=== PATIENT | female | born 1990 | race Caucasian/White ===

== ENCOUNTER 2020-09-10 13:24 | Emergency (ER) | payer BC ==
[~2020-09-10 13:24] MED LIST: Iopamidol-370 76% 500 ML 1 ML ONE
[2020-09-10 14:21] LABS: #Eosinphils 0.2 thou/uL (0.0-0.7); #Lymphocytes 2.3 thou/uL (1.20-3.40); #Monocytes 0.4 thou/uL (0.11-0.59); #Neutrophils 5.1 thou/uL (1.40-6.50); %Basophils 0.2 % (0.0-1.0); %Eosinophils 2.7 % (0.0-10.0); %Lymphocytes 28.2 % (21.0-51.0); %Monocytes 4.6 % (0.0-10.0); %Neutrophils 64.2 % (42.0-75.0); Hemoglobin 12.8 g/dL (12.0-16.0); Mean Corpuscular HGB CONC 32.5 g/dL (32.0-36.0); Mean Corpuscular Hemoglobin 28.5 pg (27.0-31.0); Mean Corpuscular Volume 87.9 fL (78.0-98.0); Mean Platelet Volume 7.1 fL (7.4-10.4); Platelet Count 423 thou/uL (130-400); RBC Distribution Width 13.1 % (11.5-14.5); Red Blood Cell (RBC) Count 4.48 mill/uL (4.20-5.40)
[2020-09-10] MEDS ORDERED: Ondansetron PF 4 MG/2 ML Vial ONE (14:28)
[2020-09-10] MEDS ORDERED: Ketorolac Tromethamine 30 MG/ML VIAL ONE (14:28)
[2020-09-10 14:43] LABS: ALT (SGPT) 18 U/L (8-55); AST (SGOT) 16 U/L (5-34); Albumin 4.2 g/dL (3.5-5.0); Alkaline Phosphatase 104 U/L (40-110); Anion Gap 14 mmol/L (10-20); BUN (Urea Nitrogen) 9 mg/dL (7.0-18.7); Bilirubin, Total 0.3 mg/dL (0.2-1.2); Calc. Creatinine Clearance 0 mL/min (70-130); Calcium 9.2 mg/dL (7.8-10.44); Carbon Dioxide 23 mmol/L (22-29); Chloride 104 mmol/L (98-107); Globulin 3.7 g/dL (2.4-3.5); Glucose 86 mg/dL (70-105); Lipase 26 U/L (8-78); Protein, Total 7.9 g/dL (6.0-8.3); Sodium 137 mmol/L (136-145)
[2020-09-10 16:11] LABS: Bacteria/HPF None Seen HPF (None Seen); Bilirubin Negative (Negative); Blood, Urine Negative (Negative); Clarity Clear (Clear); Glucose, Urine (Dipstick) Normal (Negative); Ketone, Urine Negative (Negative); Leukocyte 500 Leu/uL (Negative); Nitrite Negative (Negative); Protein, Urine (Dipstick) Negative (Neg-Trace); Squamous Epithelial 0-3 HPF (0-3); Urobilinogen Normal mg/dL (Less than 2)
[2020-09-10 16:12] LABS: Specific Gravity, Urine 1.048 (1.002-1.036)
[2020-09-10] MEDS ORDERED: Acetaminophen 500 MG TAB ONE ×2 (16:33)
[2020-09-10] MEDS ORDERED: methylPREDNISolone Sod Succ 40 MG VIAL ONE (18:29)
== END 2020-09-10 18:45 | disposition home or self-care (01) ==
LOC: ERS 13:24
DX: K50.90 Crohn's disease, unspecified, without complications (principal)
CPT/HCPCS: 36415; 74177; 80053; 81003; 81015; 83605; 83690; 84484; 85025; 96374; 96375; J1885; J2405; J2920; Q9967

== ENCOUNTER 2020-09-15 09:15 | Outpatient (CLI) | payer BC | END 2020-09-15 09:16 | disposition home or self-care (01) | LOC: MRI 09:15 | PROVIDERS: ATTEND Internal Medicine Gastroenterology | DX: K50.00 Crohn's disease of small intestine without complications (principal); K63.3 Ulcer of intestine; K52.9 Noninfective gastroenteritis and colitis, unspecified | CPT/HCPCS: 74183; J1610 ==

== ENCOUNTER 2020-09-16 14:27 | Inpatient (IN) | payer BC ==
[2020-09-16] MEDS ORDERED: Promethazine HCl 25 MG/ML VIAL ONE (15:55)
[2020-09-16] MEDS ORDERED: Ondansetron ODT 4 MG TAB ONE (16:02)
[2020-09-16] MEDS ORDERED: Ketorolac Tromethamine 30 MG/ML VIAL ONE (16:02)
[2020-09-16 16:22] LABS: #Lymphocytes 1.2 thou/uL (1.20-3.40); #Monocytes 0.3 thou/uL (0.11-0.59); #Neutrophils 8.4 thou/uL (1.40-6.50); %Basophils 0.2 % (0.0-1.0); %Eosinophils 0.4 % (0.0-10.0); %Lymphocytes 12.1 % (21.0-51.0); %Monocytes 3.2 % (0.0-10.0); %Neutrophils 84.2 % (42.0-75.0); Hemoglobin 12.9 g/dL (12.0-16.0); Mean Corpuscular HGB CONC 32.4 g/dL (32.0-36.0); Mean Corpuscular Hemoglobin 28.4 pg (27.0-31.0); Mean Corpuscular Volume 87.8 fL (78.0-98.0); Mean Platelet Volume 6.9 fL (7.4-10.4); Platelet Count 416 thou/uL (130-400); RBC Distribution Width 12.8 % (11.5-14.5); Red Blood Cell (RBC) Count 4.55 mill/uL (4.20-5.40)
[2020-09-16 16:42] LABS: ALT (SGPT) 21 U/L (8-55); AST (SGOT) 21 U/L (5-34); Albumin 4.1 g/dL (3.5-5.0); Alkaline Phosphatase 105 U/L (40-110); Anion Gap 15 mmol/L (10-20); BUN (Urea Nitrogen) 9 mg/dL (7.0-18.7); Bilirubin, Total 0.3 mg/dL (0.2-1.2); Calc. Creatinine Clearance 0 mL/min (70-130); Calcium 9.6 mg/dL (7.8-10.44); Carbon Dioxide 23 mmol/L (22-29); Chloride 103 mmol/L (98-107); Globulin 3.7 g/dL (2.4-3.5); Glucose 104 mg/dL (70-105); Lipase 14 U/L (8-78); Magnesium 2.1 mg/dL (1.6-2.6); Protein, Total 7.8 g/dL (6.0-8.3); Sodium 136 mmol/L (136-145)
[2020-09-16 16:43] LABS: BHCG - Serum Negative (NEGATIVE); Pregs Control Background? CLEAR/WHITE (CLR/WHITE); Pregs Control Bar Appear? YES (CONTROL BAR)
[2020-09-16] MEDS ORDERED: Dextrose 5 %-0.45 % NaCl 1,000 ML IV SCH (18:15)
[2020-09-16 21:37] LABS: Bacteria/HPF None Seen HPF (None Seen); Bilirubin Negative (Negative); Blood, Urine 2+ (Negative); Clarity Clear (Clear); Glucose, Urine (Dipstick) Normal (Negative); Ketone, Urine Negative (Negative); Leukocyte Negative Leu/uL (Negative); Nitrite Negative (Negative); Protein, Urine (Dipstick) Negative (Neg-Trace); Specific Gravity, Urine 1.028 (1.002-1.036); Urobilinogen Normal mg/dL (Less than 2); pH, Urine 5.5 (5.0-9.0)
[2020-09-16] MEDS: Fentanyl 100 MCG/2 ML VIAL SLOW IVP PRN (23:00)
[2020-09-16] MEDS ORDERED: Fentanyl 100 MCG/2 ML VIAL SLOW IVP PRN (23:34)
[2020-09-17 00:21] LABS: Anion Gap 13 mmol/L (10-20); BUN (Urea Nitrogen) 9 mg/dL (7.0-18.7); Calc. Creatinine Clearance 153 mL/min (70-130); Calcium 8.3 mg/dL (7.8-10.44); Carbon Dioxide 23 mmol/L (22-29); Chloride 106 mmol/L (98-107); Glucose 103 mg/dL (70-105); Potassium 4.1 mmol/L (3.5-5.1); Sodium 138 mmol/L (136-145)
[2020-09-17] MEDS: Promethazine HCl 25 MG in Sodium Chloride 0.9% 50 ML IVPB PRN ×2 (00:34→21:28)
[2020-09-17] MEDS: D5 1/2 NS w/10 mEq KCl 1,000 ML/1,000 ML BAG IV SCH ×3 (01:15→22:46)
[2020-09-17 02:17] LABS: SARS-CoV-2 PCR by NAA Not Detected (NotDetected)
[2020-09-17 06:14] LABS: #Eosinphils 0.2 thou/uL (0.0-0.7); #Lymphocytes 1.7 thou/uL (1.20-3.40); #Monocytes 0.4 thou/uL (0.11-0.59); %Basophils 0.6 % (0.0-1.0); %Eosinophils 2.9 % (0.0-10.0); %Monocytes 7.5 % (0.0-10.0); %Neutrophils 56.9 % (42.0-75.0); Mean Corpuscular HGB CONC 33.8 g/dL (32.0-36.0); Mean Corpuscular Volume 88.6 fL (78.0-98.0); Mean Platelet Volume 7.1 fL (7.4-10.4); Platelet Count 344 thou/uL (130-400); RBC Distribution Width 12.9 % (11.5-14.5); Red Blood Cell (RBC) Count 3.67 mill/uL (4.20-5.40); White Blood Cell (WBC) Count 5.3 thou/uL (4.8-10.8)
[2020-09-17 06:40] LABS: Anion Gap 11 mmol/L (10-20); BUN (Urea Nitrogen) 9 mg/dL (7.0-18.7); Calc. Creatinine Clearance 153 mL/min (70-130); Calcium 8.5 mg/dL (7.8-10.44); Carbon Dioxide 25 mmol/L (22-29); Chloride 105 mmol/L (98-107); Glucose 101 mg/dL (70-105); Potassium 3.8 mmol/L (3.5-5.1); Sodium 137 mmol/L (136-145)
[2020-09-17] MEDS: Pantoprazole 40 MG VIAL IVP SCH (08:14)
[2020-09-17] MEDS ORDERED: Bupivacaine HCl 0.5%/Epinephrine 1:200,000/PF 30 ml Vial ONE (15:20)
[2020-09-17] MEDS: methylPREDNISolone Sod Succ 40 MG VIAL IVP SCH ×2 (15:25→21:28)
[2020-09-17] MEDS: Fentanyl 100 MCG/2 ML VIAL SLOW IVP PRN ×2 (17:32→22:39)
[2020-09-17] MEDS ORDERED: Ketorolac Tromethamine 30 MG/ML VIAL IVP SCH (18:15)
[2020-09-18] MEDS: methylPREDNISolone Sod Succ 40 MG VIAL IVP SCH ×3 (05:19→21:42)
[2020-09-18] MEDS: Pantoprazole 40 MG VIAL IVP SCH (08:41)
[2020-09-18] MEDS: D5 1/2 NS w/10 mEq KCl 1,000 ML/1,000 ML BAG IV SCH ×2 (08:41→18:59)
[2020-09-18] MEDS: Fentanyl 100 MCG/2 ML VIAL SLOW IVP PRN (12:11)
[2020-09-18] MEDS: Promethazine HCl 25 MG in Sodium Chloride 0.9% 50 ML IVPB PRN (12:37)
[2020-09-18] MEDS ORDERED: Ketorolac Tromethamine 30 MG/ML VIAL IVP PRN (14:18)
[2020-09-18] MEDS: Enoxaparin Sodium 40 MG/0.4 ML SYRINGE SC SCH (21:39)
[2020-09-19] MEDS: Fentanyl 100 MCG/2 ML VIAL SLOW IVP PRN ×3 (00:36→23:58)
[2020-09-19] MEDS: D5 1/2 NS w/10 mEq KCl 1,000 ML/1,000 ML BAG IV SCH ×3 (04:57→23:59)
[2020-09-19] MEDS: methylPREDNISolone Sod Succ 40 MG VIAL IVP SCH ×3 (04:58→21:30)
[2020-09-19] MEDS: Pantoprazole 40 MG VIAL IVP SCH (08:50)
[2020-09-19] MEDS: Promethazine HCl 25 MG in Sodium Chloride 0.9% 50 ML IVPB PRN (12:07)
[2020-09-19] MEDS ORDERED: Dicyclomine 10 MG/5 ML PO PRN (15:13)
[2020-09-19] MEDS ORDERED: Dicyclomine 10 MG/5 ML PO SCH (17:00)
[2020-09-19] MEDS: Enoxaparin Sodium 40 MG/0.4 ML SYRINGE SC SCH (21:30)
[2020-09-20] MEDS: Promethazine HCl 25 MG in Sodium Chloride 0.9% 50 ML IVPB PRN ×2 (00:08→08:30)
[2020-09-20] MEDS: Fentanyl 100 MCG/2 ML VIAL SLOW IVP PRN ×2 (05:11→08:30)
[2020-09-20] MEDS: methylPREDNISolone Sod Succ 40 MG VIAL IVP SCH ×3 (05:13→20:21)
[2020-09-20 08:22] LABS: #Lymphocytes 1.4 thou/uL (1.20-3.40); #Monocytes 0.3 thou/uL (0.11-0.59); #Neutrophils 9.2 thou/uL (1.40-6.50); %Basophils 0.2 % (0.0-1.0); %Eosinophils 0.1 % (0.0-10.0); %Lymphocytes 12.8 % (21.0-51.0); %Monocytes 2.9 % (0.0-10.0); %Neutrophils 84.1 % (42.0-75.0); Hemoglobin 12.1 g/dL (12.0-16.0); Mean Corpuscular Hemoglobin 28.4 pg (27.0-31.0); Mean Corpuscular Volume 88.8 fL (78.0-98.0); Mean Platelet Volume 7.2 fL (7.4-10.4); Platelet Count 425 thou/uL (130-400); RBC Distribution Width 13.1 % (11.5-14.5); Red Blood Cell (RBC) Count 4.26 mill/uL (4.20-5.40); White Blood Cell (WBC) Count 10.9 thou/uL (4.8-10.8)
[2020-09-20] MEDS: Pantoprazole 40 MG VIAL IVP SCH (08:30)
[2020-09-20 08:38] LABS: Anion Gap 16 mmol/L (10-20); BUN (Urea Nitrogen) 7 mg/dL (7.0-18.7); Calc. Creatinine Clearance 144 mL/min (70-130); Calcium 9.4 mg/dL (7.8-10.44); Carbon Dioxide 21 mmol/L (22-29); Chloride 106 mmol/L (98-107); Glucose 122 mg/dL (70-105); Potassium 4.3 mmol/L (3.5-5.1); Sodium 139 mmol/L (136-145)
[2020-09-20] MEDS: D5 1/2 NS w/10 mEq KCl 1,000 ML/1,000 ML BAG IV SCH ×2 (11:45→20:55)
[2020-09-20] MEDS ORDERED: cefOXitin Sodium/Dextrose 2 GM/50 ML BAG ONE (14:45)
[2020-09-20] MEDS ORDERED: Fentanyl 100 MCG/2 ML VIAL ONE ×6 (14:46→19:04)
[2020-09-20] MEDS ORDERED: Dexamethasone 20 MG/5 ML VIAL ONE (14:47)
[2020-09-20] MEDS ORDERED: Lidocaine 1% PF 5 ML VIAL ONE (14:47)
[2020-09-20] MEDS ORDERED: Ondansetron PF 4 MG/2 ML Vial ONE (14:47)
[2020-09-20] MEDS ORDERED: PROPOFOL 200 MG/20 ML VIAL ONE (14:47)
[2020-09-20] MEDS ORDERED: Fentanyl 250 MCG/5 ML VIAL ONE (14:47)
[2020-09-20] MEDS ORDERED: Rocuronium Bromide 10 MG/ML (10ML VIAL) ONE (14:47)
[2020-09-20] MEDS ORDERED: Ketorolac Tromethamine 30 MG/ML VIAL ONE (14:47)
[2020-09-20] MEDS ORDERED: Succinylcholine 200 MG/10 ml SYRINGE FS ONE (14:47)
[2020-09-20] MEDS ORDERED: Scopolamine 1.5 mg/72 hour Patch ONE (14:53)
[2020-09-20] MEDS ORDERED: Midazolam HCl 2 mg/2 ml Vial ONE ×2 (14:53→17:55)
[2020-09-20] MEDS ORDERED: SUGAMMADEX SODIUM 200 MG/2 ML VIAL ONE (16:47)
[2020-09-20] MEDS ORDERED: fentaNYL Citrate/PF 2,000 MCG in Sodium Chloride 0.9% 60 ML IV PRN (17:10)
[2020-09-20] MEDS ORDERED: diphenhydrAMINE 50 MG/ML VIAL IM PRN (17:10)
[2020-09-20] MEDS ORDERED: Promethazine HCl 25 MG/ML VIAL SLOW IVP PRN (17:10)
[2020-09-20] MEDS ORDERED: Naloxone HCl 0.4 mg/ml Vial IV PRN (17:10)
[2020-09-20] MEDS ORDERED: Ondansetron HCl/PF 4 MG/2 ML Vial IVP PRN (17:10)
[2020-09-20] MEDS ORDERED: Ondansetron PF 4 MG/2 ML Vial IVP PRN (17:10)
[2020-09-20] MEDS ORDERED: diphenhydrAMINE 25 MG CAP PO PRN (17:10)
[2020-09-20] MEDS ORDERED: Zolpidem Tartrate 5 MG TAB PO PRN (17:10)
[2020-09-20] MEDS ORDERED: Promethazine HCl 25 MG/ML VIAL IM PRN ×2 (17:10)
[2020-09-20] MEDS ORDERED: Communication Order-Pharmacy FS SCH (17:15)
[2020-09-20] MEDS ORDERED: Fentanyl CADD 100 ML IVPB SCH (17:30)
[2020-09-20] MEDS ORDERED: Fentanyl 100 MCG/2 ML VIAL SLOW IVP SCH (19:15)
[2020-09-20] MEDS: Enoxaparin Sodium 40 MG/0.4 ML SYRINGE SC SCH (20:20)
[2020-09-20] MEDS: Ondansetron PF 4 MG/2 ML Vial IVP PRN (21:09)
[2020-09-20] MEDS: diphenhydrAMINE 50 MG/ML VIAL IVP PRN (23:56)
[2020-09-21] MEDS ORDERED: Fentanyl 100 MCG/2 ML VIAL SLOW IVP SCH (00:30)
[2020-09-21] MEDS ORDERED: Fentanyl 100 MCG/2 ML VIAL SLOW IVP PRN (01:00)
[2020-09-21] MEDS ORDERED: Ketorolac Tromethamine 30 MG/ML VIAL IVP SCH ×2 (01:15→10:00)
[2020-09-21] MEDS: Promethazine HCl 25 MG in Sodium Chloride 0.9% 50 ML IVPB PRN ×2 (01:33→22:45)
[2020-09-21] MEDS: diphenhydrAMINE 50 MG/ML VIAL IVP PRN ×2 (04:47→19:50)
[2020-09-21] MEDS: methylPREDNISolone Sod Succ 40 MG VIAL IVP SCH ×2 (04:49→14:33)
[2020-09-21] MEDS: D5 1/2 NS w/10 mEq KCl 1,000 ML/1,000 ML BAG IV SCH ×3 (04:50→23:07)
[2020-09-21] MEDS: Acetaminophen 325 MG TAB PO PRN ×2 (05:33→19:50)
[2020-09-21 06:35] LABS: Anion Gap 18 mmol/L (10-20); BUN (Urea Nitrogen) 8 mg/dL (7.0-18.7); Calc. Creatinine Clearance 156 mL/min (70-130); Calcium 9.2 mg/dL (7.8-10.44); Carbon Dioxide 23 mmol/L (22-29); Chloride 100 mmol/L (98-107); Glucose 127 mg/dL (70-105); Potassium 4.6 mmol/L (3.5-5.1); Sodium 136 mmol/L (136-145)
[2020-09-21] MEDS: Pantoprazole 40 MG VIAL IVP SCH (09:12)
[2020-09-21 18:16] LABS: Band 11 % (5-11); Hemoglobin 13.7 g/dL (12.0-16.0); Lymphocytes 9 % (21-51); MDiff Complete? YES; Mean Corpuscular HGB CONC 32.9 g/dL (32.0-36.0); Mean Corpuscular Hemoglobin 29.3 pg (27.0-31.0); Mean Platelet Volume 8.2 fL (7.4-10.4); Monocytes 3 % (0-10); Neutrophil 74 % (42-75); Platelet Clumps MODERATE; Platelet Count 102 thou/uL (130-400); Polychromasia SLIGHT = 2-3 cells (100X) (0-2/hpf); RBC Distribution Width 12.9 % (11.5-14.5); Reactive Lymphocytes 3 % (0-10); Red Blood Cell (RBC) Count 4.67 mill/uL (4.20-5.40); White Blood Cell (WBC) Count 13.4 thou/uL (4.8-10.8)
[2020-09-21] MEDS: Ondansetron PF 4 MG/2 ML Vial IVP PRN (18:27)
[2020-09-21] MEDS: Enoxaparin Sodium 40 MG/0.4 ML SYRINGE SC SCH (20:29)
[2020-09-22] MEDS ORDERED: predniSONE 20 MG TAB PO SCH (08:00)
[2020-09-22] MEDS: Pantoprazole 40 MG VIAL IVP SCH (08:41)
[2020-09-22] MEDS ORDERED: HYDROcodone/Acetaminophen 7.5/325 mg Tablet PO PRN (13:48)
[2020-09-22] MEDS ORDERED: Fentanyl 100 MCG/2 ML VIAL SLOW IVP PRN ×2 (13:48)
[2020-09-22] MEDS: HYDROcodone/Acetaminophen 7.5/325 mg Tablet PO PRN ×2 (14:53→20:49)
[2020-09-22] MEDS: Enoxaparin Sodium 40 MG/0.4 ML SYRINGE SC SCH (20:13)
[2020-09-22 22:41] VITALS: BMI 31.4
[2020-09-23] MEDS: HYDROcodone/Acetaminophen 7.5/325 mg Tablet PO PRN ×2 (04:44→11:45)
[2020-09-23] MEDS ORDERED: predniSONE 20 MG TAB PO SCH (08:00)
[2020-09-23 11:59] VITALS: BP 122/76; TEMP 98.2
== END 2020-09-23 12:27 | disposition home or self-care (01) | DRG 331 ==
LOC: ERS 14:27 → SURG B 17:43
PROVIDERS: ADMIT Surgery; ATTEND Surgery
PROC: 0DBH0ZZ Excision of Cecum, Open Approach (ICD-10-PCS; principal; 2020-09-20)
PROC: 0D1B0Z4 Bypass Ileum to Cutaneous, Open Approach (ICD-10-PCS; 2020-09-20)
PROC: 3E0M05Z Introduction of Adhesion Barrier into Peritoneal Cavity, Open Approach (ICD-10-PCS; 2020-09-20)
DX: K50.812 Crohn's disease of both small and large intestine with intestinal obstruction (principal); I10 Essential (primary) hypertension; I95.9 Hypotension, unspecified; Z88.5 Allergy status to narcotic agent; Z91.013 Allergy to seafood; Z90.49 Acquired absence of other specified parts of digestive tract; Z98.51 Tubal ligation status; Z84.89 Family history of other specified conditions
CPT/HCPCS: 36415; 74018; 74183; 80048; 80053; 81003; 81015; 83690; 83735; 84443; 84703; 85025; 85652; 86140; 86850; 86900; 86901; 87635; 88307; 94760; 96365; 96372; C9113; J0694; J1100; J1200; J1610; J1650; J1885; J2250; J2405; J2550; J2704; J2920; J3010; J3480; J7512; Q0162; Q0163; U0003; U0005

== ENCOUNTER 2020-10-26 17:15 | Inpatient (IN) | payer BC ==
[2020-10-26 14:27] VITALS: BMI 32.3
[2020-10-28] MEDS ORDERED: cefOXitin Sodium/Dextrose 2 GM/50 ML BAG ONE (09:30)
[2020-10-28] MEDS ORDERED: Fentanyl 100 MCG/2 ML VIAL ONE ×4 (10:46→14:41)
[2020-10-28] MEDS ORDERED: Midazolam HCl 2 mg/2 ml Vial ONE (10:46)
[2020-10-28] MEDS ORDERED: Ondansetron PF 4 MG/2 ML Vial ONE (12:00)
[2020-10-28] MEDS ORDERED: Dexamethasone 20 MG/5 ML VIAL ONE (12:00)
[2020-10-28] MEDS ORDERED: Lidocaine 1% PF 5 ML VIAL ONE (12:00)
[2020-10-28] MEDS ORDERED: PHENYLEPHRINE-NS 100 MCG/ML 10 ML SYRINGE ONE (12:00)
[2020-10-28] MEDS ORDERED: Bupivacaine HCl 0.5%/Epinephrine 1:200,000/PF 30 ml Vial ONE (12:00)
[2020-10-28] MEDS ORDERED: PROPOFOL 200 MG/20 ML VIAL ONE (12:00)
[2020-10-28] MEDS ORDERED: Rocuronium Bromide 10 MG/ML (10ML VIAL) ONE (12:00)
[2020-10-28] MEDS ORDERED: Glycopyrrolate 0.2 MG/ML 5 ML SYRINGE ONE (12:00)
[2020-10-28] MEDS ORDERED: Sodium Chloride 0.9% 20 ML ONE (13:52)
[2020-10-28] MEDS ORDERED: Ondansetron HCl/PF 4 MG/2 ML Vial IVP PRN (14:08)
[2020-10-28] MEDS ORDERED: Promethazine HCl 25 MG/ML VIAL SLOW IVP PRN (14:08)
[2020-10-28] MEDS ORDERED: Promethazine HCl 25 MG/ML VIAL IM PRN ×2 (14:08→14:34)
[2020-10-28] MEDS ORDERED: diphenhydrAMINE 25 MG CAP PO PRN (14:34)
[2020-10-28] MEDS ORDERED: Ondansetron PF 4 MG/2 ML Vial IVP PRN (14:34)
[2020-10-28] MEDS ORDERED: diphenhydrAMINE 50 MG/ML VIAL IM PRN (14:34)
[2020-10-28] MEDS ORDERED: Naloxone HCl 0.4 mg/ml Vial IV PRN (14:34)
[2020-10-28] MEDS ORDERED: fentaNYL Citrate/PF 2,000 MCG in Sodium Chloride 0.9% 60 ML IV PRN (14:34)
[2020-10-28] MEDS ORDERED: Zolpidem Tartrate 5 MG TAB PO PRN (14:34)
[2020-10-28] MEDS ORDERED: hydrALAZINE 20 MG/ML VIAL SLOW IVP PRN (14:35)
[2020-10-28] MEDS ORDERED: Promethazine HCl 25 MG/ML VIAL ONE (14:41)
[2020-10-28] MEDS ORDERED: Communication Order-Pharmacy FS SCH (14:45)
[2020-10-28] MEDS ORDERED: diphenhydrAMINE 50 MG/ML VIAL ONE (15:22)
[2020-10-28] MEDS: D5 1/2 NS w/20 mEq KCL 1,000 ML IV SCH (17:14)
[2020-10-28] MEDS: cefOXitin Sodium/Dextrose,Iso 2 GM in Premix Bag 1 BAG IVPB SCH (20:13)
[2020-10-28] MEDS: Famotidine/PF 20 mg/2ml Vial SLOW IVP SCH (20:14)
[2020-10-28] MEDS: Ketorolac Tromethamine 30 MG/ML VIAL IVP PRN (20:14)
[2020-10-28] MEDS: diphenhydrAMINE 50 MG/ML VIAL IVP PRN ×2 (20:14→23:30)
[2020-10-28] MEDS: Famotidine 20 MG TAB PO SCH (20:15)
[2020-10-28] MEDS: Enoxaparin Sodium 40 MG/0.4 ML SYRINGE SC SCH (20:15)
[2020-10-28] MEDS: Ondansetron PF 4 MG/2 ML Vial IVP PRN (23:30)
[2020-10-29] MEDS: D5 1/2 NS w/20 mEq KCL 1,000 ML IV SCH ×2 (01:14→03:20)
[2020-10-29] MEDS: diphenhydrAMINE 50 MG/ML VIAL IVP PRN ×3 (03:20→10:35)
[2020-10-29] MEDS: cefOXitin Sodium/Dextrose,Iso 2 GM in Premix Bag 1 BAG IVPB SCH (03:20)
[2020-10-29 04:01] LABS: #Lymphocytes 1.1 thou/uL (1.20-3.40); #Monocytes 1.1 thou/uL (0.11-0.59); #Neutrophils 15.6 thou/uL (1.40-6.50); %Eosinophils 0.1 % (0.0-10.0); %Monocytes 5.9 % (0.0-10.0); Hemoglobin 11.5 g/dL (12.0-16.0); Mean Corpuscular HGB CONC 34.2 g/dL (32.0-36.0); Mean Corpuscular Hemoglobin 30.2 pg (27.0-31.0); Mean Corpuscular Volume 88.5 fL (78.0-98.0); Mean Platelet Volume 7.3 fL (7.4-10.4); Platelet Count 350 thou/uL (130-400); RBC Distribution Width 12.8 % (11.5-14.5); Red Blood Cell (RBC) Count 3.81 mill/uL (4.20-5.40); White Blood Cell (WBC) Count 17.7 thou/uL (4.8-10.8)
[2020-10-29 04:30] LABS: Anion Gap 13 mmol/L (10-20); BUN (Urea Nitrogen) 7 mg/dL (7.0-18.7); Calc. Creatinine Clearance 158 mL/min (70-130); Calcium 8.9 mg/dL (7.8-10.44); Carbon Dioxide 25 mmol/L (22-29); Chloride 102 mmol/L (98-107); Glucose 136 mg/dL (70-105); Potassium 4.1 mmol/L (3.5-5.1); Sodium 136 mmol/L (136-145)
[2020-10-29] MEDS: Famotidine 20 MG TAB PO SCH ×2 (09:03→20:27)
[2020-10-29] MEDS: Ketorolac Tromethamine 30 MG/ML VIAL IVP PRN ×3 (09:08→21:53)
[2020-10-29] MEDS: Famotidine/PF 20 mg/2ml Vial SLOW IVP SCH ×2 (09:42→20:24)
[2020-10-29] MEDS ORDERED: HYDROmorphone 10 MG in Sodium Chloride 0.9% 95 ML IVPB PRN (11:15)
[2020-10-29] MEDS ORDERED: D5 1/2 NS w/20 mEq KCL 1,000 ML IV SCH (12:13)
[2020-10-29] MEDS: Enoxaparin Sodium 40 MG/0.4 ML SYRINGE SC SCH (20:27)
[2020-10-30] MEDS: Ketorolac Tromethamine 30 MG/ML VIAL IVP PRN ×3 (04:30→16:52)
[2020-10-30] MEDS: Sodium Chloride 0.9% 1,000 ML IV SCH ×2 (08:10→11:45)
[2020-10-30 08:31] LABS: #Eosinphils 0.1 thou/uL (0.0-0.7); #Lymphocytes 2.5 thou/uL (1.20-3.40); #Neutrophils 10.9 thou/uL (1.40-6.50); %Basophils 0.3 % (0.0-1.0); %Eosinophils 0.4 % (0.0-10.0); %Lymphocytes 17.2 % (21.0-51.0); %Neutrophils 75.1 % (42.0-75.0); Hemoglobin 10.7 g/dL (12.0-16.0); Mean Corpuscular HGB CONC 34.3 g/dL (32.0-36.0); Mean Corpuscular Hemoglobin 30.2 pg (27.0-31.0); Mean Corpuscular Volume 87.9 fL (78.0-98.0); Platelet Count 328 thou/uL (130-400); RBC Distribution Width 12.9 % (11.5-14.5); Red Blood Cell (RBC) Count 3.54 mill/uL (4.20-5.40); White Blood Cell (WBC) Count 14.5 thou/uL (4.8-10.8)
[2020-10-30 08:47] LABS: Anion Gap 13 mmol/L (10-20); BUN (Urea Nitrogen) 7 mg/dL (7.0-18.7); Calc. Creatinine Clearance 134 mL/min (70-130); Calcium 8.3 mg/dL (7.8-10.44); Carbon Dioxide 23 mmol/L (22-29); Chloride 101 mmol/L (98-107); Glucose 112 mg/dL (70-105); Potassium 3.9 mmol/L (3.5-5.1); Sodium 133 mmol/L (136-145)
[2020-10-30] MEDS: HYDROcodone/Acetaminophen 10/325 mg Tablet PO PRN ×3 (08:54→19:56)
[2020-10-30] MEDS: Famotidine 20 MG TAB PO SCH ×2 (08:54→19:56)
[2020-10-30] MEDS: Famotidine/PF 20 mg/2ml Vial SLOW IVP SCH ×2 (08:55→20:08)
[2020-10-30] MEDS: Hydrocortisone Sod Succ/PF 100 mg/2 ml Vial IVP SCH ×2 (11:45→19:57)
[2020-10-30] MEDS: D5 1/2 NS w/20 mEq KCL 1,000 ML IV SCH ×2 (16:51→19:58)
[2020-10-30] MEDS: Enoxaparin Sodium 40 MG/0.4 ML SYRINGE SC SCH (20:08)
[2020-10-30] MEDS: Ondansetron PF 4 MG/2 ML Vial IVP PRN (21:52)
[2020-10-30] MEDS: Promethazine HCl 25 MG/ML VIAL IM PRN (22:20)
[2020-10-31] MEDS: Ketorolac Tromethamine 30 MG/ML VIAL IVP PRN ×4 (03:23→23:24)
[2020-10-31] MEDS: Hydrocortisone Sod Succ/PF 100 mg/2 ml Vial IVP SCH ×3 (03:23→18:35)
[2020-10-31 04:06] LABS: Anion Gap 11 mmol/L (10-20); BUN (Urea Nitrogen) 4 mg/dL (7.0-18.7); Calc. Creatinine Clearance 183 mL/min (70-130); Calcium 8.2 mg/dL (7.8-10.44); Carbon Dioxide 25 mmol/L (22-29); Chloride 106 mmol/L (98-107); Glucose 134 mg/dL (70-105); Potassium 3.9 mmol/L (3.5-5.1); Sodium 138 mmol/L (136-145)
[2020-10-31 05:40] LABS: #Monocytes 0.5 thou/uL (0.11-0.59); #Neutrophils 9.5 thou/uL (1.40-6.50); %Basophils 0.4 % (0.0-1.0); %Eosinophils 0.4 % (0.0-10.0); %Lymphocytes 9.3 % (21.0-51.0); %Monocytes 4.7 % (0.0-10.0); %Neutrophils 85.3 % (42.0-75.0); Hemoglobin 9.6 g/dL (12.0-16.0); Mean Corpuscular HGB CONC 34.1 g/dL (32.0-36.0); Mean Corpuscular Hemoglobin 30.6 pg (27.0-31.0); Mean Corpuscular Volume 89.8 fL (78.0-98.0); Mean Platelet Volume 7.6 fL (7.4-10.4); Platelet Count 263 thou/uL (130-400); RBC Distribution Width 12.7 % (11.5-14.5); Red Blood Cell (RBC) Count 3.15 mill/uL (4.20-5.40); White Blood Cell (WBC) Count 11.1 thou/uL (4.8-10.8)
[2020-10-31] MEDS: Famotidine/PF 20 mg/2ml Vial SLOW IVP SCH ×2 (09:02→20:55)
[2020-10-31] MEDS: D5 1/2 NS w/20 mEq KCL 1,000 ML IV SCH ×3 (09:03→22:12)
[2020-10-31] MEDS: Famotidine 20 MG TAB PO SCH ×2 (09:03→20:52)
[2020-10-31] MEDS: Promethazine HCl 25 MG/ML VIAL IM PRN ×3 (09:07→22:06)
[2020-10-31] MEDS: Enoxaparin Sodium 40 MG/0.4 ML SYRINGE SC SCH (20:55)
[2020-10-31] MEDS: HYDROcodone/Acetaminophen 10/325 mg Tablet PO PRN (22:06)
[2020-10-31] MEDS: diphenhydrAMINE 50 MG/ML VIAL IVP PRN (23:47)
[2020-11-01] MEDS: Hydrocortisone Sod Succ/PF 100 mg/2 ml Vial IVP SCH ×3 (04:01→18:32)
[2020-11-01] MEDS: Famotidine 20 MG TAB PO SCH ×2 (08:16→20:10)
[2020-11-01] MEDS: Famotidine/PF 20 mg/2ml Vial SLOW IVP SCH ×2 (08:16→19:51)
[2020-11-01] MEDS: D5 1/2 NS w/20 mEq KCL 1,000 ML IV SCH (11:09)
[2020-11-01] MEDS: Promethazine HCl 25 MG/ML VIAL IM PRN ×2 (13:16→19:51)
[2020-11-01] MEDS: Ketorolac Tromethamine 30 MG/ML VIAL IVP PRN ×2 (13:20→19:51)
[2020-11-01] MEDS: Enoxaparin Sodium 40 MG/0.4 ML SYRINGE SC SCH (20:10)
[2020-11-02] MEDS: Hydrocortisone Sod Succ/PF 100 mg/2 ml Vial IVP SCH ×3 (03:23→18:32)
[2020-11-02] MEDS: D5 1/2 NS w/20 mEq KCL 1,000 ML IV SCH (03:24)
[2020-11-02 05:19] LABS: Troponin I Less than 0.010 ng/mL (< 0.028)
[2020-11-02] MEDS: Promethazine HCl 25 MG/ML VIAL IM PRN (06:14)
[2020-11-02] MEDS: Famotidine 20 MG TAB PO SCH ×2 (07:47→20:57)
[2020-11-02] MEDS: Famotidine/PF 20 mg/2ml Vial SLOW IVP SCH ×2 (07:48→21:00)
[2020-11-02] MEDS: Ketorolac Tromethamine 30 MG/ML VIAL IVP PRN (07:55)
[2020-11-02] MEDS ORDERED: Furosemide 20 MG/2 ML VIAL SLOW IVP SCH (09:30)
[2020-11-02] MEDS ORDERED: Lorazepam 1 MG TAB PO PRN ×2 (12:11→12:12)
[2020-11-02] MEDS: HYDROcodone/Acetaminophen 10/325 mg Tablet PO PRN (17:51)
[2020-11-02] MEDS: Enoxaparin Sodium 40 MG/0.4 ML SYRINGE SC SCH (20:59)
[2020-11-03] MEDS: Hydrocortisone Sod Succ/PF 100 mg/2 ml Vial IVP SCH ×2 (04:26→12:44)
[2020-11-03] MEDS: Famotidine 20 MG TAB PO SCH (08:23)
[2020-11-03] MEDS: Famotidine/PF 20 mg/2ml Vial SLOW IVP SCH (08:24)
[2020-11-03 11:59] VITALS: BP 113/76; TEMP 97.9
== END 2020-11-03 12:31 | disposition home or self-care (01) | DRG 330 ==
LOC: SURG A 10-28 09:02
PROVIDERS: ADMIT Surgery; ATTEND Surgery
PROC: 0DBB0ZZ Excision of Ileum, Open Approach (ICD-10-PCS; principal; 2020-10-28)
PROC: 3E0T3BZ Introduction of Anesthetic Agent into Peripheral Nerves and Plexi, Percutaneous Approach (ICD-10-PCS; 2020-10-28)
PROC: 3E0M05Z Introduction of Adhesion Barrier into Peritoneal Cavity, Open Approach (ICD-10-PCS; 2020-10-28)
DX: Z43.2 Encounter for attention to ileostomy (principal); K50.912 Crohn's disease, unspecified, with intestinal obstruction; Z20.822 Contact with and (suspected) exposure to COVID-19; F41.9 Anxiety disorder, unspecified; Z90.49 Acquired absence of other specified parts of digestive tract; Z88.6 Allergy status to analgesic agent; Z91.013 Allergy to seafood; Z79.899 Other long term (current) drug therapy; Z79.51 Long term (current) use of inhaled steroids
CPT/HCPCS: 36415; 71045; 71275; 80048; 82533; 84484; 85025; 85379; 88304; 93005; 93010; C1751; J0360; J0694; J1100; J1170; J1200; J1720; J1885; J1940; J2250; J2405; J2550; J2704; J3010; J3480; J3490; S0028; U0002; U0005

== ENCOUNTER 2020-10-26 17:25 | Outpatient (CLI) | payer BC ==
[2020-10-27 09:46] LABS: SARS-CoV-2 NAA Rapid Test Not Detected (NotDetected)
== END 2020-10-26 17:26 | disposition home or self-care (01) ==
LOC: LABBT 17:25
PROVIDERS: ATTEND Surgery
DX: Z01.812 Encounter for preprocedural laboratory examination (principal); K94.13 Enterostomy malfunction; Z20.822 Contact with and (suspected) exposure to COVID-19
CPT/HCPCS: U0002; U0005

== ENCOUNTER 2020-12-17 09:26 | Day surgery (SDC) | payer BC ==
[~2020-12-17 09:26] MED LIST changes: +Acetaminophen 500 MG TAB PO PRN; -Iopamidol-370 76% 500 ML 1 ML ONE; +Ustekinumab 390 MG in Sodium Chloride 0.9% 250 ML 172 ML IVPB SCH; +diphenhydrAMINE 25 MG CAP PO PRN
[2020-12-17] MEDS ORDERED: Sodium Chloride 0.9% 20 ML ONE (10:02)
== END 2020-12-17 12:05 | disposition home or self-care (01) ==
LOC: ONC/OP 09:26
PROVIDERS: ATTEND Internal Medicine Gastroenterology
DX: K50.90 Crohn's disease, unspecified, without complications (principal); Z88.5 Allergy status to narcotic agent; Z91.013 Allergy to seafood
CPT/HCPCS: 96413; J3358; J7050; Q0163

== ENCOUNTER 2025-01-12 11:47 | Outpatient (CLI) | payer MEDICARE ==
[2025-01-12 13:12] LABS: #Basophils 0.03 10x3/uL (0.0-0.2); #Eosinophils 0.25 10x3/uL (0.0-0.7); #Monocytes 0.61 10x3/uL (0.11-0.59); #Neutrophils 4.51 10x3/uL (1.40-6.50); %Basophils 0.4 % (0.0-1.0); %Eosinophils 3.1 % (0.0-10.0); %Lymphocytes 32.7 % (21.0-51.0); %Monocytes 7.6 % (0.0-10.0); %Neutrophils 55.8 % (42.0-75.0); Hematocrit 38.7 % (36.0-47.0); Hemoglobin 12.5 g/dL (12.0-16.0); Mean Corpuscular Hemoglobin 28.5 pg (27.0-31.0); Mean Corpuscular Volume 88.2 fL (78.0-98.0); Platelet Count 385 10x3/uL (130-400); Red Blood Cell (RBC) Count 4.39 mill/uL (4.20-5.40); White Blood Cell (WBC) Count 8.07 10x3/uL (4.8-10.8)
[2025-01-12 13:30] LABS: ALT (SGPT) 10 U/L (Less than 34); AST (SGOT) 25 U/L (11-34); Albumin 4.1 g/dL (3.1-4.5); Alkaline Phosphatase 79 U/L (40-110); Anion Gap 14 mmol/L (10-20); BUN (Urea Nitrogen) 9 mg/dL (7.0-18.7); Bilirubin, Total 0.3 mg/dL (0.3-1.2); Calc. Creatinine Clearance 0 mL/min (70-130); Calcium 9.5 mg/dL (7.8-10.44); Carbon Dioxide 24 mmol/L (22-29); Chloride 104 mmol/L (98-107); Globulin 4.0 g/dL (2.4-3.5); Glucose 92 mg/dL (70-105); Potassium 4.0 mmol/L (3.5-5.1); Sodium 138 mmol/L (136-145)
== END 2025-01-12 11:48 | disposition home or self-care (01) ==
LOC: LABBT 11:47
PROVIDERS: ATTEND Surgery
DX: Z01.812 Encounter for preprocedural laboratory examination (principal); E66.01 Morbid (severe) obesity due to excess calories
CPT/HCPCS: 80053; 83036; 85025

== ENCOUNTER 2025-01-12 13:00 | Inpatient (IN) | payer MEDICARE ==
[2025-01-12 12:10] VITALS: BMI 40.0
[2025-01-20] MEDS ORDERED: Bupivacaine 0.25% HCL 30 ML VIAL ONE (06:41)
[2025-01-20] MEDS ORDERED: Acetaminophen 500 MG TAB ONE (06:53)
[2025-01-20] MEDS ORDERED: Heparin 5,000 UNITS/ML VIAL ONE (06:53)
[2025-01-20] MEDS ORDERED: Ketorolac Tromethamine 30 MG (1 mL) VIAL ONE (06:53)
[2025-01-20] MEDS ORDERED: fentaNYL PF 100 MCG/2 ML SYRINGE ONE ×3 (06:59→09:58)
[2025-01-20] MEDS ORDERED: PROPOFOL 20 ML ONE ×2 (06:59→08:18)
[2025-01-20] MEDS ORDERED: CEFAZOLIN 2 GM VIAL ONE (07:28)
[2025-01-20] MEDS ORDERED: Lidocaine 1% PF 5 ML VIAL ONE (08:14)
[2025-01-20] MEDS ORDERED: Rocuronium Bromide 10 MG/ML (10ML VIAL) ONE (08:14)
[2025-01-20] MEDS ORDERED: Ondansetron PF 4 MG/2 ML Vial ONE ×2 (08:49→10:16)
[2025-01-20] MEDS ORDERED: SUGAMMADEX SODIUM 200 MG/2 ML VIAL ONE (08:49)
[2025-01-20] MEDS ORDERED: HYDROmorphone 0.5 MG/0.5 ML SYRINGE ONE ×3 (09:41→10:16)
[2025-01-20] MEDS ORDERED: diphenhydrAMINE 50 MG/ML VIAL IVP PRN (09:44)
[2025-01-20] MEDS ORDERED: Glucagon 1 MG/ML KIT IM PRN (09:44)
[2025-01-20] MEDS ORDERED: hydrALAZINE 20 MG/ML VIAL SLOW IVP PRN (09:44)
[2025-01-20] MEDS ORDERED: Dextrose 50% Abboject 50 ML SYRINGE SLOW IVP PRN (09:44)
[2025-01-20] MEDS: D5 1/2 NS w/20 mEq KCL 1,000 ML IV SCH (13:23)
[2025-01-20] MEDS: Ondansetron PF 4 MG/2 ML Vial IVP PRN (15:48)
[2025-01-21] MEDS: oxyCODONE 5 MG TAB PO PRN (00:07)
[2025-01-21 07:08] LABS: #Basophils Less than 0.03 10x3/uL (0.0-0.2); #Eosinophils Less than 0.03 10x3/uL (0.0-0.7); #Monocytes 0.58 10x3/uL (0.11-0.59); #Neutrophils 10.26 10x3/uL (1.40-6.50); %Basophils 0.2 % (0.0-1.0); %Eosinophils 0.0 % (0.0-10.0); %Lymphocytes 14.7 % (21.0-51.0); %Monocytes 4.5 % (0.0-10.0); %Neutrophils 80.0 % (42.0-75.0); Hematocrit 39.8 % (36.0-47.0); Hemoglobin 12.5 g/dL (12.0-16.0); Mean Corpuscular Hemoglobin 28.8 pg (27.0-31.0); Mean Corpuscular Volume 91.7 fL (78.0-98.0); Platelet Count 402 10x3/uL (130-400); Red Blood Cell (RBC) Count 4.34 mill/uL (4.20-5.40); White Blood Cell (WBC) Count 12.83 10x3/uL (4.8-10.8)
[2025-01-21 07:25] LABS: Anion Gap 16 mmol/L (10-20); BUN (Urea Nitrogen) 6 mg/dL (7.0-18.7); Calc. Creatinine Clearance 211 mL/min (70-130); Calcium 9.4 mg/dL (7.8-10.44); Carbon Dioxide 20 mmol/L (22-29); Chloride 103 mmol/L (98-107); Glucose 107 mg/dL (70-105); Potassium 4.5 mmol/L (3.5-5.1); Sodium 134 mmol/L (136-145)
[2025-01-21] MEDS: Pantoprazole 40 MG VIAL IVP SCH (08:33)
[2025-01-21] MEDS: Ketorolac Tromethamine 30 MG (1 mL) VIAL IVP PRN (08:33)
[2025-01-21] MEDS: Enoxaparin 40 MG (0.4 mL) SYRINGE SC SCH (08:33)
[2025-01-22 10:45] VITALS: BP 101/66; TEMP 97.7
== END 2025-01-22 12:10 | disposition home or self-care (01) | DRG 621 ==
LOC: SURG A 01-20 05:58 → SURG B 01-20 11:52
PROVIDERS: ADMIT Surgery; ATTEND Surgery
PROC: 0DB64Z3 Excision of Stomach, Percutaneous Endoscopic Approach, Vertical (ICD-10-PCS; principal; 2025-01-20)
PROC: 8E0W4CZ Robotic Assisted Procedure of Trunk Region, Percutaneous Endoscopic Approach (ICD-10-PCS; 2025-01-20)
DX: E66.01 Morbid (severe) obesity due to excess calories (principal); Z68.41 Body mass index [BMI] 40.0-44.9, adult
CPT/HCPCS: 36415; 80048; 85025; 88307; 94760; J0169; J0665; J1100; J1171; J1644; J1650; J1885; J2405; J2470; J2550; J2704; J3010; J3480; S2900